=== PATIENT | male | born 1945 | race Caucasian/White ===

== ENCOUNTER 2016-07-21 21:24 | Emergency (ER) | payer MEDICARE, OTHER ==
[~2016-07-21] VITALS: Ht 182.9 cm; Wt 79.5 kg
[~2016-07-21 21:24] MED LIST: DILT120C86 PO; GABA800T2 PO; MIRT15TA6 PO
[2016-07-21 21:31] VITALS: BP 114/71; PULSE 61; RESP 17; O2SAT 94
--- NOTE | 2016-07-21 21:59 | ED.REPORT ---
HPI-Eye Problem Date of Service Jul 21, 2016 ED Provider: Dr. Amos Pt is a 71 year old male with a history of A-fib and a recent surgery for cataracts on 07/17/16 who presents to the ED complaining of decreased vision in his left eye early today. He reports that his eye looked red this morning and his vision decreased later today. Pt is able to see light, but his eye is not focusing. He went to a follow up appointment 3 days ago with no concerning issues. Nursing Notes Stated Complaint: RIGHT EYE CAN'T EYE Chief Complaint: Eye Nursing Notes Reviewed: Yes Allergies: Coded Allergies: nortriptyline (Verified Allergy, Unknown, 01/19/15) Scheduled Diltiazem ER (Diltiazem ER) 120 Mg Capsule.er 120 MG PO DAILY Gabapentin (Gabapentin) 800 Mg Tablet 800 MG PO BID Mirtazapine (Mirtazapine) 15 Mg Tablet 15 MG PO HS General Time Seen by MD: 21:59 Chief Complaint Left eye affected Hx Obtained From: Patient Arrived By: Walk-in Sudden in Onset?: No Onset Occurred: 1 - 4 hours ago Symptom Duration: Constant Severity: Current: No pain currently Severity: Maximum: No pain Recent Healthcare: Recent doctor visit Similar Sx Previous: No Past Medical History Past Medical History L3-L4 disc herniation Atrial fibrillation, is not currently taking blood thinners Lymphoma in remission Diverticulitis Denies: Congestive heart failure, Diabetes mellitus Past Surgical History L3-L4 microdiscectomy in 2010 Perforated gastric ulcer requiring repair Subsequent bowel structures and status post lysis of adhesions Family History Noncontributory Smoking History Current Every Day Smoker, Heavy Tobacco Smoker Social History Alcohol Use: Denies alcohol use Other Social History: Good social support, , Local resident Ambulatory Status Independent Review of Systems Eyes: Reports: Blurred left, Redness left Complete sys rev & neg: except as marked. Respiratory: Denies: Non-productive cough, Shortness of breath Physical Exam Initial Vital Signs Vital Signs (First) Date Time Temp Pulse Resp B/P Pulse Ox O2 Delivery O2 Flow Rate FiO2 07/21/16 21:31 36.7 61 17 114/71 94 Room Air Initial VS: Reviewed Neck: Supple, Full range of motion Respiratory: Breath sounds normal, Clear to auscultation, No respiratory distress Cardiovascular: Regular rate & rhythm, Heart sounds normal, Intact distal pulses Abdomen / GI: Soft, Non-tender Extremities: Vascular intact, Neuro intact Skin: Warm, Dry, No cyanosis Neurologic: Alert, Oriented, Nonfocal Psychiatric: Mood/affect normal, Behavior normal Head / Eyes: EOMI Pinpoint pupils 2 cm bilaterally No blood in anterior chamber No conjunctivitis He can't visualize fundus on either side Cataract in his left eye General/Constitutional: Awake, Alert, No acute distress, Cooperative Re-Eval/Medical Decision Med Decision/Clinical Course 71-year-old presents a week out from a cataract extraction and intraocular lens implant. He had sudden loss of vision this morning and presents more than twelve hours later.Chang painless, with no other associated symptoms. Discussed with Dr. Storey who agreed to meet him at the office immediately. Returns with Dr. Storey for discharge from here with steroid drops and antibiotics. Cultures were plated directly from an aspiration of the anterior chamber and submitted to the lab for incubation. Gram stain was not obtained. Source of Hx: Old records Re-Evaluation/Progress : Time of Eval: 22:23 Re-Evaluation/Progress Note: Pt rechecked. Informed pt of plan for discharge. Pt understands and agrees with plan for discharge. F/U instructions and RTER warnings given. All questions addressed. Consultation : Referral / Consult Name: CHAPITO STOREY MD Consulted With: Side Puller Call Returned at: 22:13 Heavy Equipment Operator Apprentice: Will see patient, Agrees with eval, Agrees with plan Note: Consulted with Dr. Storey. He will see the pt tonight at the ophthalmology surgery center. Discharge & Departure Primary Impression: Loss of vision Additional Impression: Endophthalmitis Disposition: Home Discharge Condition All VS Reviewed: Yes Condition: Stable Additional Instructions: Go now to the ophthalmology surgery Center on [facility]. Dr. Storey will meet you on the left-hand side of the building. Do not delay. He will be there in twenty minutes. Referrals: Lisandra Norwood (PCP) Sulema Attestation Portions of this note were transcribed by Sierra Ang. IDr. Amos personally performed the history, physical exam and medical decision-making; I reviewed and confirmed the accuracy of the information in the transcribed note. Signed by: Sulema Watts, 07/21/16 and 22:35 copies to: Lisandra Norwood; CHAPITO STOREY MD, Christopher W MD Jul 21, 2016 21:59 Sierra Novak Jul 21, 2016 22:07
[2016-07-21] MEDS ORDERED: PrednisoLONE 1% 5 mL Ophthalmic Suspension AFFECT_EYE SCH (23:45)
[2016-07-21] MEDS ORDERED: Polymyxin B-Trimethoprim 10 mL Ophthalmic Solution RIGHT_EYE SCH (23:45)
[2016-07-21] MEDS ORDERED: Moxifloxacin 0.5% 3 mL Ophthalmic Solution RIGHT_EYE SCH (23:45)
[2016-07-21] MEDS ORDERED: PrednisoLONE 1% 5 mL Ophthalmic Suspension RIGHT_EYE SCH (23:45)
[2016-07-22] MEDS ORDERED: PrednisoLONE 1% 5 mL Ophthalmic Suspension RIGHT_EYE ONE (00:30)
[2016-07-22] MEDS ORDERED: Moxifloxacin 0.5% 3 mL Ophthalmic Solution RIGHT_EYE SCH (00:30)
[2016-07-22] MEDS ORDERED: PrednisoLONE 1% 5 mL Ophthalmic Suspension RIGHT_EYE SCH ×2 (00:30)
[2016-07-22] MEDS ORDERED: Polymyxin B-Trimethoprim 10 mL Ophthalmic Solution RIGHT_EYE SCH (00:30)
== END 2016-07-21 22:27 | disposition home or self-care (01) ==
LOC: SED 21:24
DX: H44.002 Unspecified purulent endophthalmitis, left eye (principal); F17.200 Nicotine dependence, unspecified, uncomplicated; Z96.1 Presence of intraocular lens; Z88.8 Allergy status to other drugs, medicaments and biological substances